=== PATIENT | female | born 1945 | race Two or more races ===

== ENCOUNTER → 2025-04-06 | Outpatient (CLI) | payer MEDICARE, SELFPAY ==
[2025-04-06 14:50] LABS: Basophils # (Auto) 0.1 Thou/mm3 (0.0-0.2); Basophils % (Auto) 1 % (0-2.5); Eosinophils # (Auto) 0.2 Thou/mm3 (0.0-0.5); Eosinophils % (Auto) 2 % (0-10); Hematocrit 34.1 % (36.0-46.0); Hemoglobin 11.9 g/dL (12.0-16.0); Immature Granulocytes % (Auto) 0 % (0-0); Immature Granulocytes Auto 0.04 Thou/mm3 (0.00-0.00); Lymphocytes # (Auto) 0.6 Thou/mm3 (1.0-4.8); Lymphocytes % (Auto) 6 % (10-50); Mean Corpuscular HGB Conc 34.9 g/dl (31.0-37.0); Mean Corpuscular Hemoglobin 29.8 pg (25.0-35.0); Mean Corpuscular Volume 85 fL (80-100); Monocytes # (Auto) 0.4 Thou/mm3 (0.0-0.8); Monocytes % (Auto) 4 % (0-12); Neutrophils # (Auto) 8.2 Thou/mm3 (1.8-7.7); Neutrophils % (Auto) 86 % (37-80); Nucleated Red Blood Cell % 0 /100 WBC (0); Platelet Count 198 Thou/mm3 (140-440); RDW Standard Deviation 43.7 fL (36.4-46.3); White Blood Count 9.5 Thou/mm3 (3.6-11.0)
[2025-04-06 14:57] LABS: INR 1.1 (0.9-1.3); Partial Thromboplastin Time 23.6 Seconds (22.0-36.0); Prothrombin Time 11.9 Seconds (9.0-12.2)
[2025-04-06 14:59] LABS: Glucose Estimated Average 117 mg/dL (80-131); Hemoglobin A1C 5.7 % Hgb (4.8-6.0)
[2025-04-06 15:03] LABS: Alanine Aminotransferase 25 U/L (10-49); Albumin, Serum 3.9 gm/dL (3.4-4.8); Albumin/Globulin Ratio 1.8 (1.2-2.2); Alkaline Phosphatase 100 U/L (46-116); Anion Gap 12 (7-16); Aspartate Amino Transferase 22 U/L (0-34); BUN/Creatinine Ratio 24 Ratio (12-20); Bilirubin,Total 1.3 mg/dL (0.3-1.2); Blood Urea Nitrogen 17 mg/dL (9-23); Calcium 8.3 mg/dL (8.3-10.6); Calcium (Corrected) 8.4 mg/dL (8.5-10.1); Carbon Dioxide 22.3 mMol/L (20.0-31.0); Cardiac Risk Estimate 1.8 RATIO (3.7-5.6); Chloride 107 mMol/L (98-107); Cholesterol 88 mg/dL (132-200); Creatinine (Component) 0.7 mg/dL (0.6-1.3); Globulin 2.2 gm/dL (2.3-3.5); Glucose 140 mg/dL (74-106); HDL Cholesterol 48 mg/dL (40-60); LDL Cholesterol,Calculated 22 mg/dL (0-130); Magnesium 1.4 mg/dL (1.6-2.6); Osmolality,Calculated 284 (275-295); Phosphorous 2.9 mg/dL (2.4-5.1); Potassium 3.9 mMol/L (3.4-5.1); Sodium 141 mMol/L (136-145); Total Protein 6.1 gm/dL (5.7-8.2); Triglycerides 91 mg/dL (30-150); eGFR > 60 See Note
[2025-04-06 15:13] LABS: Creatinine MALB Rnd Ur 190 mg/dL (30-125); Microalbumin Creat Ratio 21 mg/gCrea (<30); Microalbumin, Random Urine 39 mg/L (0-300)
== END | disposition home or self-care (01) ==
LOC: COPL 13:51
PROVIDERS: PCP Nurse Practitioner; Referring Provider Nurse Practitioner; Visit Provider Nurse Practitioner
DX: Z01.812 Encounter for preprocedural laboratory examination (principal); E11.69 Type 2 diabetes mellitus with other specified complication; E78.5 Hyperlipidemia, unspecified; I10 Essential (primary) hypertension; E83.42 Hypomagnesemia; E83.39 Other disorders of phosphorus metabolism
CPT/HCPCS: 36415; 80053; 80061; 82043; 82570; 83036; 83735; 84100; 85025; 85610; 85730

== ENCOUNTER 2025-06-28 12:00 | Emergency (ER) | payer MEDICARE, SELFPAY ==
[2025-06-28] VITALS (30 sets, daily range): BP systolic 131–154; BP diastolic 40–69; PULSE 60–73; RESP 16–18; TEMP 36.6–37.1; O2SAT 88–98; BMI 31.5
--- NOTE | 2025-06-28 | XR_ITS ---
Examination: MRI lumbar spine without contrast Date and time of exam: June 28, 2025 1843 hours INDICATIONS: Back pain this week, lumbar spine surgery June 2025 Technique: Multiple MRI axial and sagittal sections lumbar spine. Sagittal T2-weighted images, TR 3500, TE 118 T1 weighted transverse sections, TR 688 T8.5, T2-weighted sagittal sections T1 weighted sagittal sections TR 621, TE 30 T2 axial sections, TR 4, 190, TE 84. Findings: All of the images are degraded by patient motion Transpedicular lumbar fusion L2-S1 with satisfactory alignment Acute compression fracture L1 vertebral body, reduction in height 40% Retropulsion of the posterior-superior margin of this vertebral body at least 5 mm impinging upon the cauda equina but no severe spinal stenosis IMPRESSION: Acute compression fracture L1 vertebral body, retropulsion of the posterior superior portion of this vertebral body at least 5 mm impinging upon the cauda equina, however no severe spinal stenosis
--- NOTE | 2025-06-28 | XR_ITS ---
MRI abdomen, without contrast. MRCP Date and time of exam: June 28, 2025, 1849 hours INDICATIONS: Abdominal pain this week, abnormal extrahepatic biliary tract dilatation on CT abdomen and pelvis today Technique: Multiple axial and coronal images of the abdomen have been obtained with the Siemens 1.5T MRI scanner. Images obtained included T1 weighted transverse images, T2-weighted transverse images, T2-weighted transverse images fat-suppressed, T2 weighted haste fat suppressed transverse images, T1 weighted images, in and out of phase images, T2-weighted coronal images, breath hold, T2 weighted haze coronal images as well as T2 weighted coronal thick slab images, MRCP. Findings: Abnormal enlarged common hepatic common bile duct measuring up to 17 mm with abrupt termination of the distal common bile duct Pancreatic duct is not dilated Atrophic pancreas No ascites Spleen not enlarged No hydronephrosis Aorta normal size IMPRESSION: Abnormal extrahepatic biliary tract dilatation, abrupt tapering of the distal common bile duct, differential would include malignant stricture at the ampulla Recommend ERCP follow-up
--- NOTE | 2025-06-28 13:17 | PD.EDRME ---
Rapid Medical Screening Exam RME Arrival date/time: 06/28/25 12:00 Chief Complaint: Abdominal Pain Time Seen by Provider: 06/28/25 13:27 Vital signs: Vital Signs Temperature 98.8 F 06/28/25 12:52 Pulse Rate 60 06/28/25 12:52 Respiratory Rate 18 06/28/25 12:52 Blood Pressure 134/69 H 06/28/25 12:52 Pulse Oximetry (%) 98 06/28/25 12:52 Oxygen Delivery Method Room Air 06/28/25 12:52 Pulse ox is 98% room air Vital signs reviewed by provider: Yes RME Narrative: Patient complains of difficulty passing stool and has had a past medical history to include small bowel obstruction. Recently she had a back surgery postponed due to abdominal pain and abdominal issues. Denies vomiting.
--- NOTE | 2025-06-28 13:18 | XR_ITS ---
Examination: CT abdomen with intravenous contrast CT pelvis with intravenous contrast 2-D coronal reconstructions 2-D sagittal reconstructions Date and time of exam:June 28, 2025 1620 hours INDICATIONS: Lower abdominal pain beginning 3 days ago. CTDI: vol (mGy) 12.8 DLP: (mGycm) 730 Technique: Multiple axial sections of the abdomen and pelvis have been obtained. 64 slice high-resolution scanner used. 3 mm axial sections have been obtained, post intravenous injection 60 cc [id number] 2-D sagittal, coronal reconstructions obtained. Low dose protocols were performed. One or more of the following dose reduction techniques were used; automated exposure control, adjustment of the mA and/or KV according to patient size, use of iterative reconstruction technique. Findings: Intrahepatic biliary tract dilatation Absent gallbladder Abnormal enlargement common bile duct, 16 mm No definite common hepatic or common bile duct stones No pancreatic mass or peripancreatic edema Pancreatic duct is not dilated No adrenal mass Spleen is not enlarged. No renal or ureteral calculi, no hydronephrosis Dense abdominal aortic calcification no aneurysmal dilatation No pericecal inflammatory change Intact urinary bladder Absent uterus No pelvic mass Abundant stool in the rectum with thickening the rectal wall Severe osteopenia with extensive transpedicular lumbar stabilization L2 through the sacrum with disc spacers Acute fracture L1 vertebral body, depression inferior endplate, axial image 95, reduction in height 40% Retropulsion of the posterior inferior margin of this vertebral body at least 5 mm IMPRESSION: Abnormal intra and extra hepatic biliary tract dilatation, common bile duct 16 mm Recommend MRCP follow-up to exclude common bile duct stones or malignant stricture of the distal common bile duct Abundant stool in the rectum with thickening the rectal wall, differential would include proctitis recommend direct inspection of the rectum as clinically warranted Acute fracture L1 vertebral body, depression inferior endplate, reduction in height 40%, retropulsed fragment off the posterior inferior margin of this vertebral body at least 5 mm Consider MRI lumbar spine follow-up to confirm significant lumbar spinal stenosis
--- NOTE | 2025-06-28 13:28 | PD.EDABDPN ---
ED Abdominal Pain RME/HPI General Chief Complaint: Abdominal Pain Stated complaint: ABD PAIN, HX DIVERTICULITIS, SENT BY PCP Time seen by provider: 06/28/25 13:27 Arrival date/time: 06/28/25 12:00 RME / HPI RME / HPI narrative: Patient complains of difficulty passing stool and has had a past medical history to include small bowel obstruction. Recently she had a back surgery postponed due to abdominal pain and abdominal issues. Denies vomiting. DR. ANGUIANO MAIN ED EVALUATION 80 year old female with history of diverticulosis, diverticulitis, previous small bowel obstructions, presents to the ED for evaluation of worsening abdominal pain beginning 2 days ago. Located most across lower abdomen described as aching in sensation, rating as severe. Accompanied by nausea, decreased appetite, subjective fevers, and constipation. Daughter states she has given the patient a mixture of tea's to help with digestion and stool softeners with little improvement. Denies any fevers, chills, vomiting, diarrhea, or urinary symptoms. Related Data Allergies Allergy/AdvReac Type Severity Reaction Status Date / Time No Known Allergies Allergy Verified 06/28/25 12:03 Review of Systems Review of Systems Systems Reviewed: All systems reviewed, normal except as documented Past Medical History Past Medical History CARDIAC: Positive Cardiac Disorders, Hypercholesterolemia and Hypertension GASTROINTESTINAL: Positive Diverticulosis ENDOCRINE: Positive Diabetes Mellitus Type 2 Surgical History SURGICAL: Positive of Back Surgery Social History SMOKING STATUS: Never smoker ED Exam Narrative Physical exam: Constitutional: Awake, alert, nontoxic, obese, appears to be in pain HEENT: NC, AT, EOMI Neck: Supple CV: RRR, no m/r/g Lungs: CTAB, no w/r/r, no respiratory distress. Abd: Soft, significant lower abdominal pain, no rebound, no guarding, no HSM noted to palpation Extremities: No deformities, no edema noted Neuro: AAOx3, CN 2-12 GIBL, no acute neuro deficit noted. Skin: Warm, dry, intact Course Course Course Narrative: 1640h: Labs showing CRP mildly elevated at 14, normal lactate, slight abnormalities to electrolytes without significant abnormalities noted. CT abdomen is pending. 1647h: CT is back showing the following concerning findings: - Abnormal intra and extra hepatic biliary tract dilatation, common bile duct 16 mm. Recommend MRCP follow-up to exclude common bile duct stones or malignant stricture of the distal common bile duct. - Abundant stool in the rectum with thickening the rectal wall, differential would include proctitis recommend direct inspection of the rectum as clinically warranted - Acute fracture L1 vertebral body, depression inferior endplate, reduction in height 40%, retropulsed fragment off the posterior inferior margin of this vertebral body at least 5 mm. Consider MRI lumbar spine follow-up to confirm significant lumbar spinal stenosis. MRIs ordered. Patient will be signed out to Dr. Smith pending results. Quality Measures none Orders Category Date Time Status CT Screening NOW Care 06/28/25 13:[address] Screening X1 Care 06/28/25 13:18 Active In and Out Catheter X1 Care 06/28/25 18:02 Completed Insert IV NOW Care 06/28/25 13:38 Active MRI Screening NOW Care 06/28/25 16:46 Active MRI Screening NOW Care 06/28/25 16:[address] abdomen pelvis w con Stat Exams 06/28/25 13:18 Completed MR MRCP Stat Exams 06/28/25 Ordered MR lumbar spine wo con Stat Exams 06/28/25 Ordered CBC Stat Lab 06/28/25 13:37 Completed CRP [C-Reactive Protein] Stat Lab 06/28/25 13:37 Completed Comprehensive Metabolic Panel Stat Lab 06/28/25 13:37 Completed Lactic Acid [Lactate (Lactic Acid)] Stat Lab 06/28/25 13:37 Completed Lipase Stat Lab 06/28/25 13:37 Completed Urinalysis Stat Lab 06/28/25 17:36 Received Morphine Inj Med 06/28/25 13:38 Discontinued 4 mg IVP X1 ONE Ondansetron Inj [Zofran Inj] Med 06/28/25 13:38 Discontinued 4 mg IVP X1 ONE Vital Signs Vital signs: Vital Signs Temperature 98.8 F 06/28/25 12:52 Pulse Rate 60 06/28/25 12:52 Respiratory Rate 18 06/28/25 12:52 Blood Pressure 134/69 H 06/28/25 12:52 Pulse Oximetry (%) 98 06/28/25 12:52 Oxygen Delivery Method Room Air 06/28/25 12:52 Pulse ox is 98% on room air which is adequate. Abdominal Pain MDM MDM Narrative MDM Narrative:: Terri Quinonez am scribing for and in the presence of Dr. Anguiano. Patient data External records reviewed:: None (No previous ED visits for review ) Clinical information provided by:: patient Social determinants that could affect healthcare access:: none Patient has the following chronic illnesses:: diverticulosis, diverticulitis, previous small bowel obstructions How is presenting disease/condition affected by chronic disease/condition?: exacerbated by Evaluation data The following diagnostics were reviewed and interpreted by me:: lab results and radiology exam(s) Lab and/or radiology exams considered but not ordered:: None Interpretation Summary: Ordering Physician: Jonathan Garces PA-C Date of Service: 06/28/25 Procedure(s): CT abdomen pelvis w con Accession Number(s): [id number] cc: Danielle Gutierrez; Teja Falcon MD; Jonathan Garces PA-C~ Examination: CT abdomen with intravenous contrast CT pelvis with intravenous contrast 2-D coronal reconstructions 2-D sagittal reconstructions Date and time of exam:June 28, 2025 1620 hours INDICATIONS: Lower abdominal pain beginning 3 days ago. CTDI: vol (mGy) 12.8 DLP: (mGycm) 730 Technique: Multiple axial sections of the abdomen and pelvis have been obtained. 64 slice high-resolution scanner used. 3 mm axial sections have been obtained, post intravenous injection 60 cc [id number] 2-D sagittal, coronal reconstructions obtained. Low dose protocols were performed. One or more of the following dose reduction techniques were used; automated exposure control, adjustment of the mA and/or KV according to patient size, use of iterative reconstruction technique. Findings: Intrahepatic biliary tract dilatation Absent gallbladder Abnormal enlargement common bile duct, 16 mm No definite common hepatic or common bile duct stones No pancreatic mass or peripancreatic edema Pancreatic duct is not dilated No adrenal mass Spleen is not enlarged. No renal or ureteral calculi, no hydronephrosis Dense abdominal aortic calcification no aneurysmal dilatation No pericecal inflammatory change Intact urinary bladder Absent uterus No pelvic mass Abundant stool in the rectum with thickening the rectal wall Severe osteopenia with extensive transpedicular lumbar stabilization L2 through the sacrum with disc spacers Acute fracture L1 vertebral body, depression inferior endplate, axial image 95, reduction in height 40% Retropulsion of the posterior inferior margin of this vertebral body at least 5 mm IMPRESSION: Abnormal intra and extra hepatic biliary tract dilatation, common bile duct 16 mm Recommend MRCP follow-up to exclude common bile duct stones or malignant stricture of the distal common bile duct Abundant stool in the rectum with thickening the rectal wall, differential would include proctitis recommend direct inspection of the rectum as clinically warranted Acute fracture L1 vertebral body, depression inferior endplate, reduction in height 40%, retropulsed fragment off the posterior inferior margin of this vertebral body at least 5 mm Consider MRI lumbar spine follow-up to confirm significant lumbar spinal stenosis Dictated By: Teja Falcon MD Signed By: <Electronically signed by Teja Falcon MD in OV> 06/28/25 1641 Medications / Prescriptions Medications or Prescriptions considered but not ordered:: None Medication administrations:: Medication Administration History Discontinued Medications Morphine Sulfate (Morphine Sulf Inj 10 Mg/Ml Vial) 4 mg IVP X1 ONE Stop: 06/28/25 13:39 Last Admin: 06/28/25 15:06 Dose: 4 mg Documented By: EF Ondansetron HCl (Ondansetron Inj 2 Mg/Ml Inj 2 Ml) 4 mg IVP X1 ONE; Protocol Stop: 06/28/25 13:39 Last Admin: 06/28/25 15:05 Dose: 4 mg Documented By: EF See above Consultations Consultation(s) initiated? (list below): No Diagnosis Differential diagnosis abdominal pain: abdominal pain, diverticulitis and small bowel obstruction Most likely diagnosis given after review of the tests above:: Abdominal pain, dilated common bile duct, L1 fracture Admission Indicated Admission indicated?: not indicated Explain why admission is indicated or not indicated:: Signed out pending final disposition Admission Request Was there a request for admission?: No Disposition Plan Disposition Plan: other (specify) ([facility] Discharge Plan Prescriptions/Referrals Referrals: Danielle Gutierrez FNP [Primary Care Provider] - In 1 week Problem List Clinical Impression: Common bile duct dilation, Abdominal pain, Fracture of lumbar spine Patient/Caregiver Discharge Instructions Print Language: Yi
[2025-06-28 13:47] LABS: Lactate (Lactic Acid) 1.0 mMol/L (0.4-2.0)
[2025-06-28 13:48] LABS: Basophils # (Auto) 0.1 Thou/mm3 (0.0-0.2); Basophils % (Auto) 1 % (0-2.5); Eosinophils # (Auto) 0.1 Thou/mm3 (0.0-0.5); Eosinophils % (Auto) 1 % (0-10); Hematocrit 33.0 % (36.0-46.0); Hemoglobin 11.2 g/dL (12.0-16.0); Immature Granulocytes Auto 0.08 Thou/mm3 (0.00-0.00); Lymphocytes # (Auto) 0.9 Thou/mm3 (1.0-4.8); Lymphocytes % (Auto) 8 % (10-50); Mean Corpuscular HGB Conc 33.9 g/dl (31.0-37.0); Mean Corpuscular Hemoglobin 30.4 pg (25.0-35.0); Mean Corpuscular Volume 90 fL (80-100); Monocytes # (Auto) 0.7 Thou/mm3 (0.0-0.8); Monocytes % (Auto) 7 % (0-12); Neutrophils # (Auto) 9.2 Thou/mm3 (1.8-7.7); Neutrophils % (Auto) 84 % (37-80); Nucleated Red Blood Cell # 0.00 Thou/mm3 (0.00-0.00); Nucleated Red Blood Cell % 0 /100 WBC (0); Platelet Count 227 Thou/mm3 (140-440); RDW Standard Deviation 48.9 fL (36.4-46.3); Red Blood Count 3.68 Miln/mm3 (4.00-5.20); White Blood Count 11.0 Thou/mm3 (3.6-11.0)
[2025-06-28 14:22] LABS: Alanine Aminotransferase 10 U/L (10-49); Albumin, Serum 3.9 gm/dL (3.4-4.8); Albumin/Globulin Ratio 1.8 (1.2-2.2); Alkaline Phosphatase 115 U/L (46-116); Anion Gap 11 (7-16); Aspartate Amino Transferase 19 U/L (0-34); BUN/Creatinine Ratio 31 Ratio (12-20); Bilirubin,Total 0.7 mg/dL (0.3-1.2); Blood Urea Nitrogen 25 mg/dL (9-23); C-Reactive Protein 14.3 mg/dL (0.0-0.9); Calcium 9.6 mg/dL (8.3-10.6); Calcium (Corrected) 9.7 mg/dL (8.5-10.1); Carbon Dioxide 19.4 mMol/L (20.0-31.0); Chloride 102 mMol/L (98-107); Creatinine (Component) 0.8 mg/dL (0.6-1.3); Estimated Creatinine Clearance 57.4 mL/min (>60); Globulin 2.2 gm/dL (2.3-3.5); Glucose 105 mg/dL (74-106); Lipase 20 U/L (12-53); Osmolality,Calculated 268 (275-295); Potassium 3.9 mMol/L (3.4-5.1); Sodium 132 mMol/L (136-145); Total Protein 6.1 gm/dL (5.7-8.2); eGFR > 60 See Note
[2025-06-28] MEDS: ONDANSETRON INJ 2 MG/ML INJ 2 ML 4 MG IVP (15:05)
[2025-06-28] MEDS: MORPHINE SULF INJ 10 MG/ML VIAL 4 MG IVP ×2 (15:06→20:37)
[2025-06-28 18:10] LABS: Collection Type, Urine Clean Catch; RBC,Urine 0 /hpf (0-3); WBC,Urine 0 /hpf (0-5)
--- NOTE | 2025-06-28 18:31 | EDNOTE_ITS ---
Emergency Room Addendum <Emily Jovel - Last Filed: 06/29/25 02:38> Addendum Narrative: 1800: Care assumed from Dr. Chand, the previous shift emergency physician. Past medical, surgical, social and family history reviewed. Vitals and home medications reviewed. Results and treatment plan discussed. I will assume the care of the patient at this time and will follow the patient, pending MRCP and MRI of the lumbar spine. Please refer to the emergency department record for history and examination from initial visit. 2257: [facility] declined the patient for transfer due to not having ERCP capabilities, as their provider is on vacation. 0040: Discussed case with [facility]'s transfer center. Discussed patients ED course, exam findings, labs, and radiology results. Awaiting callback. 0238: [facility] called back, stating the patient needs prior insurance authorization since the patient would need a Med Surge bed. RADIOLOGY RESULTS: [place] [facility] Signed Patient: NICK CLARK [facility]. Record#: [id number] Birthdate: 1945 Age/Sex: 80 / F Location: [facility] Attending Dr: Ordering Physician: Kenia Chand MD Date of Service: 06/28/25 Procedure(s): MR MRCP Accession Number(s): [id number] cc: Danielle Gutierrez; Teja Falcon MD; Kenia Chand MD~ MRI abdomen, without contrast. MRCP Date and time of exam: June 28, 2025, 1849 hours INDICATIONS: Abdominal pain this week, abnormal extrahepatic biliary tract dilatation on CT abdomen and pelvis today Technique: Multiple axial and coronal images of the abdomen have been obtained with the Siemens 1.5T MRI scanner. Images obtained included T1 weighted transverse images, T2-weighted transverse images, T2-weighted transverse images fat-suppressed, T2 weighted haste fat suppressed transverse images, T1 weighted images, in and out of phase images, T2-weighted coronal images, breath hold, T2 weighted haze coronal images as well as T2 weighted coronal thick slab images, MRCP. Findings: Abnormal enlarged common hepatic common bile duct measuring up to 17 mm with abrupt termination of the distal common bile duct Pancreatic duct is not dilated Atrophic pancreas No ascites Spleen not enlarged No hydronephrosis Aorta normal size IMPRESSION: Abnormal extrahepatic biliary tract dilatation, abrupt tapering of the distal common bile duct, differential would include malignant stricture at the ampulla Recommend ERCP follow-up Dictated By: Teja Falcon MD Signed By: <Electronically signed by Teja Falcon MD in OV> 06/28/252112 [place] [facility] Signed Patient: NICK CLARK [facility] Record#: [id number] Birthdate: 1945 Age/Sex: 80 / F Location: [facility] Attending Dr: Ordering Physician: Kenia Chand MD Date of Service: 06/28/25 Procedure(s): MR lumbar spine wo con Accession Number(s): [id number] cc: Danielle Gutierrez; Teja Falcon MD; Kenia Chand MD~ Examination: MRI lumbar spine without contrast Date and time of exam: June 28, 2025 1843 hours INDICATIONS: Back pain this week, lumbar spine surgery June 2025 Technique: Multiple MRI axial and sagittal sections lumbar spine. Sagittal T2-weighted images, TR 3500, TE 118 T1 weighted transverse sections, TR 688 T8.5, T2-weighted sagittal sections T1 weighted sagittal sections TR 621, TE 30 T2 axial sections, TR 4, 190, TE 84. Findings: All of the images are degraded by patient motion Transpedicular lumbar fusion L2-S1 with satisfactory alignment Acute compression fracture L1 vertebral body, reduction in height 40% Retropulsion of the posterior-superior margin of this vertebral body at least 5 mm impinging upon the cauda equina but no severe spinal stenosis IMPRESSION: Acute compression fracture L1 vertebral body, retropulsion of the posterior superior portion of this vertebral body at least 5 mm impinging upon the cauda equina, however no severe spinal stenosis Dictated By: Teja Falcon MD Signed By: <Electronically signed by Teja Falcon MD in OV> 06/28/252114 <Brayden Smith, - Last Filed: 06/29/25 05:21> Addendum Narrative: 1800: Care assumed from Dr. Chand, the previous shift emergency physician. Past medical, surgical, social and family history reviewed. Vitals and home medications reviewed. Results and treatment plan discussed. I will assume the care of the patient at this time and will follow the patient, pending MRCP and MRI of the lumbar spine. Please refer to the emergency department record for history and examination from initial visit. 2257: [facility] declined the patient for transfer due to not having ERCP capabilities, as their provider is on vacation. 0040: Discussed case with [facility]'s transfer center. Discussed patients ED course, exam findings, labs, and radiology results. Awaiting callback. 0238: [facility] called back, stating the patient needs prior insurance authorization since the patient would need a Med Surge bed. RADIOLOGY RESULTS: [place] [facility] Signed Patient: NICK CLARK. Record#: [id number] Birthdate: 1945 Age/Sex: 80 / F Location: [facility] Attending Dr: Ordering Physician: Kenia Chand MD Date of Service: 06/28/25 Procedure(s): MR MRCP Accession Number(s): [id number] cc: Danielle Gutierrez; Teja Falcon MD; Kenia Chand MD~ MRI abdomen, without contrast. MRCP Date and time of exam: June 28, 2025, 1849 hours INDICATIONS: Abdominal pain this week, abnormal extrahepatic biliary tract dilatation on CT abdomen and pelvis today Technique: Multiple axial and coronal images of the abdomen have been obtained with the Siemens 1.5T MRI scanner. Images obtained included T1 weighted transverse images, T2-weighted transverse images, T2-weighted transverse images fat-suppressed, T2 weighted haste fat suppressed transverse images, T1 weighted images, in and out of phase images, T2-weighted coronal images, breath hold, T2 weighted haze coronal images as well as T2 weighted coronal thick slab images, MRCP. Findings: Abnormal enlarged common hepatic common bile duct measuring up to 17 mm with abrupt termination of the distal common bile duct Pancreatic duct is not dilated Atrophic pancreas No ascites Spleen not enlarged No hydronephrosis Aorta normal size IMPRESSION: Abnormal extrahepatic biliary tract dilatation, abrupt tapering of the distal common bile duct, differential would include malignant stricture at the ampulla Recommend ERCP follow-up Dictated By: Teja Falcon MD Signed By: <Electronically signed by Teja Falcon MD in OV> 06/28/252112 [place] [facility] Signed Patient: NICK CLARK Record#: [id number] Birthdate: 1945 Age/Sex: 80 / F Location: [facility] Attending Dr: Ordering Physician: Kenia Chand MD Date of Service: 06/28/25 Procedure(s): MR lumbar spine wo con Accession Number(s): [id number] cc: Danielle Gutierrez; Teja Falcon MD; Kenia Chand MD~ Examination: MRI lumbar spine without contrast Date and time of exam: June 28, 2025 1843 hours INDICATIONS: Back pain this week, lumbar spine surgery June 2025 Technique: Multiple MRI axial and sagittal sections lumbar spine. Sagittal T2-weighted images, TR 3500, TE 118 T1 weighted transverse sections, TR 688 T8.5, T2-weighted sagittal sections T1 weighted sagittal sections TR 621, TE 30 T2 axial sections, TR 4, 190, TE 84. Findings: All of the images are degraded by patient motion Transpedicular lumbar fusion L2-S1 with satisfactory alignment Acute compression fracture L1 vertebral body, reduction in height 40% Retropulsion of the posterior-superior margin of this vertebral body at least 5 mm impinging upon the cauda equina but no severe spinal stenosis IMPRESSION: Acute compression fracture L1 vertebral body, retropulsion of the posterior superior portion of this vertebral body at least 5 mm impinging upon the cauda equina, however no severe spinal stenosis Dictated By: Teja Falcon MD Signed By: <Electronically signed by Teja Falcon MD in OV> 06/28/252114 Patient had an MRCP reading that showed a dilated common bile duct with a rather abrupt narrowing and constriction at the distal end. It was the recommendation of the radiologist that this patient undergo an ERCP to better evaluate this rather abrupt narrowing of the distal portion of the common bile duct. [facility] was willing to take the patient but the patient needs insurance authorization first this will be done by case management this morning. Case will be signed out to Dr. Chand.
[2025-06-28 19:00] LABS: Bilirubin,Urine Negative (Negative); Blood,Urine Negative (Negative); Budding Yeast,Urine Present; Clarity,Urine Clear (Clear/Hazy); Color,Urine Yellow (Lt Yel-Yel); Glucose, Urine 4+ (Negative); Ketones,Urine Trace (Negative); Leukocyte Esterase,Urine Negative (Negative); Nitrite,Urine Negative (Negative); PH,Urine 5.5 (5.0-7.0); Protein,Urine Negative (Neg - Trace); Specific Gravity,Urine 1.026 (1.001-1.035); Squamous Epithelial Cell,Urine 1 /hpf (0-5); Urobilinogen,Urine 2.0 mg/dL (0.0-1.0)
--- NOTE | 2025-06-28 22:43 | PC.NURSE ---
[facility] contacted for possible transfer for ERCP-packet faxed awaiting response.
--- NOTE | 2025-06-28 23:27 | PC.NURSE ---
Per Salvador at [facility] they do not have ERCP capabilities. [facility] contacted for transfer awaiting for response.
[2025-06-29] VITALS (12 sets, daily range): BP systolic 141–161; BP diastolic 35–57; PULSE 64–96; RESP 17–18; TEMP 36.5–36.9; O2SAT 93–96
--- NOTE | 2025-06-29 03:35 | PC.NURSE ---
0235 [facility] reached back and stated since pt is needing a Med Surge bed then insurance authorization is needed prior to transfer. Transfer Nurse will be made aware at the am shift. Per MD Smith this isn't an emergency and doesn't need to be transferred ED to ED.
--- NOTE | 2025-06-29 06:19 | PD.EDADDENDU ---
Emergency Room Addendum <Teresa Valera - Last Filed: 06/29/25 13:18> Addendum Narrative: 0600: Care assumed from Dr. Smith, overnight emergency physician. Patient is pending transfer for ERCP. Please refer to the emergency department record for history and examination from initial visit.? 80-year-old female with history of diverticulosis, diverticulitis, and previous small bowel obstructions presents to the Emergency Department with complaint of worsening abdominal pain that began two days ago. Pain is associated with nausea, decreased appetite, subjective fevers, and constipation. She denies chills, vomiting, diarrhea, or urinary symptoms. Patient signed out on 06/27 pending MRCP and MRI lumbar spine. Previous provider started transfer for ERCP. Transfer to [facility] declined (no ERCP provider available). Case discussed with [facility] transfer center; they required insurance authorization for Med-Surg bed. 0700: [facility] called back for authorization status and requested an update on the patient's condition. Have checked on patient, she continues to have pain. Appears to be combination of pain to lower back as well as abdomen, though abdominal pain appears to be worse. Patient also mentions that she does have some paresthesias to bilateral feet ongoing for several days now. Reviewed the MRI results. MRI lumbar spine from last night shows an acute compression fracture of L1 vertebral body. Retropulsion of posterior superior vertebral body fragment ~5 mm, impinging on cauda equina. No severe spinal stenosis. [facility] notes that this was not discussed with them last night. They will contact neurosurgery for consult. 0802h: [facility] called back. Recommendations from neurosurgery regarding the MRI spine results are no surgical intervention required at this time. Recommends back brace for corset, no lifting or bending, pain control, outpatient follow-up. [facility] will check with their GI specialist this morning to see if we can expedite patient's transfer. Checked on patient again -she is tearful, crying due to abdominal pain. Dose of morphine given about [address] from yesterday did show large amount of stool in rectum and has been constipated. Will add fleets enema. Awaiting callback from [facility]. 0821: GI specialist Dr. Martinez accepting transfer. D/w Dr. Patel in ED who accepts the patient for transfer to [facility] as well. Diagnoses: -Common bile duct dilation -Abnormal pain -Fracture of lumbar spine <Kenia Chand MD - Last Filed: 06/29/25 08:31> Addendum Narrative: 0600: Care assumed from Dr. Smith, overnight emergency physician. Patient is pending transfer for ERCP. Please refer to the emergency department record for history and examination from initial visit.? 80-year-old female with history of diverticulosis, diverticulitis, and previous small bowel obstructions presents to the Emergency Department with complaint of worsening abdominal pain that began two days ago. Pain is associated with nausea, decreased appetite, subjective fevers, and constipation. She denies chills, vomiting, diarrhea, or urinary symptoms. Patient signed out on 06/27 pending MRCP and MRI lumbar spine. Previous provider started transfer for ERCP. Transfer to [facility] declined (no ERCP provider available). Case discussed with [facility] transfer center; they required insurance authorization for Med-Surg bed. 0700: [facility] called back for authorization status and requested an update on the patient's condition. Have checked on patient, she continues to have pain. Appears to be combination of pain to lower back as well as abdomen, though abdominal pain appears to be worse. Patient also mentions that she does have some paresthesias to bilateral feet ongoing for several days now. Reviewed the MRI results. MRI lumbar spine from last night shows an acute compression fracture of L1 vertebral body. Retropulsion of posterior superior vertebral body fragment ~5 mm, impinging on cauda equina. No severe spinal stenosis. [facility] notes that this was not discussed with them last night. They will contact neurosurgery for consult. 0802h: [facility] called back. Recommendations from neurosurgery regarding the MRI spine results are no surgical intervention required at this time. Recommends back brace for corset, no lifting or bending, pain control, outpatient follow-up. [facility] will check with their GI specialist this morning to see if we can expedite patient's transfer. Checked on patient again -she is tearful, crying due to abdominal pain. Dose of morphine given about [address] from yesterday did show large amount of stool in rectum and has been constipated. Will add fleets enema. Awaiting callback from [facility]. 0821: GI specialist Dr. Martinez accepting transfer. D/w Dr. Patel in ED who accepts the patient for transfer to [facility] as well. Results <Teresa Soto - Last Filed: 06/29/25 13:18> Objective Laboratory: Laboratory Last Values WBC 11.0 Thou/mm3 (3.6-11.0) 06/28/25 13:37 RBC 3.68 Miln/mm3 (4.00-5.20) L 06/28/25 13:37 Hgb 11.2 g/dL (12.0-16.0) L 06/28/25 13:37 Hct 33.0 % (36.0-46.0) L 06/28/25 13:37 MCV 90 fL (80-100) 06/28/25 13:37 MCH 30.4 pg (25.0-35.0) 06/28/25 13:37 MCHC 33.9 g/dl (31.0-37.0) 06/28/25 13:37 RDW Std Deviation 48.9 fL (36.4-46.3) H 06/28/25 13:37 Plt Count 227 Thou/mm3 (140-440) 06/28/25 13:37 Neut % (Auto) 84 % (37-80) H 06/28/25 13:37 Lymph % (Auto) 8 % (10-50) L 06/28/25 13:37 Carolina % (Auto) 7 % (0-12) 06/28/25 13:37 Eos % (Auto) 1 % (0-10) 06/28/25 13:37 Baso % (Auto) 1 % (0-2.5) 06/28/25 13:37 Neut # (Auto) 9.2 Thou/mm3 (1.8-7.7) H 06/28/25 13:37 Lymph # (Auto) 0.9 Thou/mm3 (1.0-4.8) L 06/28/25 13:37 Carolina # (Auto) 0.7 Thou/mm3 (0.0-0.8) 06/28/25 13:37 Eos # (Auto) 0.1 Thou/mm3 (0.0-0.5) 06/28/25 13:37 Baso # (Auto) 0.1 Thou/mm3 (0.0-0.2) 06/28/25 13:37 Immature Gran # (Auto) 0.08 Thou/mm3 (0.00-0.00) H 06/28/25 13:37 Absolute Nucleated RBC 0.00 Thou/mm3 (0.00-0.00) 06/28/25 13:37 Immature Gran % 1 % (0-0) H 06/28/25 13:37 Nucleated RBC % 0 /100 WBC (0) 06/28/25 13:37 Sodium 132 mMol/L (136-145) L 06/28/25 13:37 Potassium 3.9 mMol/L (3.4-5.1) 06/28/25 13:37 Chloride 102 mMol/L (98-107) 06/28/25 13:37 Carbon Dioxide 19.4 mMol/L (20.0-31.0) L 06/28/25 13:37 Anion Gap 11 (7-16) 06/28/25 13:37 BUN 25 mg/dL (9-23) H 06/28/25 13:37 Creatinine 0.8 mg/dL (0.6-1.3) 06/28/25 13:37 Estim Creat Clear Calc 57.4 mL/min (>60) L 06/28/25 13:37 eGFR > 60 See Note (60-) 06/28/25 13:37 BUN/Creatinine Ratio 31 Ratio (12-20) H 06/28/25 13:37 Glucose 105 mg/dL (74-106) 06/28/25 13:37 Calculated Osmolality 268 (275-295) L 06/28/25 13:37 Lactic Acid 1.0 mMol/L (0.4-2.0) 06/28/25 13:37 Calcium 9.6 mg/dL (8.3-10.6) 06/28/25 13:37 Corrected Calcium 9.7 mg/dL (8.5-10.1) 06/28/25 13:37 Total Bilirubin 0.7 mg/dL (0.3-1.2) 06/28/25 13:37 AST 19 U/L (0-34) 06/28/25 13:37 ALT 10 U/L (10-49) 06/28/25 13:37 Alkaline Phosphatase 115 U/L (46-116) 06/28/25 13:37 C-Reactive Prot, Quant 14.3 mg/dL (0.0-0.9) H 06/28/25 13:37 Total Protein 6.1 gm/dL (5.7-8.2) 06/28/25 13:37 Albumin 3.9 gm/dL (3.4-4.8) 06/28/25 13:37 Globulin 2.2 gm/dL (2.3-3.5) L 06/28/25 13:37 Albumin/Globulin Ratio 1.8 (1.2-2.2) 06/28/25 13:37 Lipase 20 U/L (12-53) 06/28/25 13:37 Ur Collection Type Clean Catch 06/28/25 17:36 Urine Color Yellow (Lt Yel-Yel) 06/28/25 17:36 Urine Clarity Clear (Clear/Hazy) 06/28/25 17:36 Urine pH 5.5 (5.0-7.0) 06/28/25 17:36 Ur Specific Osakis 1.026 (1.001-1.035) 06/28/25 17:36 Urine Protein Negative (Neg - Trace) 06/28/25 17:36 Urine Glucose (UA) 4+ (Negative) A 06/28/25 17:36 Urine Ketones Trace (Negative) 06/28/25 17:36 Urine Blood Negative (Negative) 06/28/25 17:36 Urine Nitrite Negative (Negative) 06/28/25 17:36 Urine Bilirubin Negative (Negative) 06/28/25 17:36 Urine Urobilinogen (Auto) 2.0 mg/dL (0.0-1.0) 06/28/25 17:36 Ur Leukocyte Esterase Negative (Negative) 06/28/25 17:36 Urine RBC 0 /hpf (0-3) 06/28/25 17:36 Urine WBC 0 /hpf (0-5) 06/28/25 17:36 Ur Squamous Epith Cells 1 /hpf (0-5) 06/28/25 17:36 Urine Bacteria None (None) 06/28/25 17:36 Urine Yeast (Budding) Present (None) A 06/28/25 17:36 Imaging: Procedure(s): MR MRCP Accession Number(s): [id number] cc: Danielle Gutierrez; Teja Falcon MD; Kenia Chand MD~ MRI abdomen, without contrast. MRCP Date and time of exam: June 28, 2025, 1849 hours INDICATIONS: Abdominal pain this week, abnormal extrahepatic biliary tract dilatation on CT abdomen and pelvis today Technique: Multiple axial and coronal images of the abdomen have been obtained with the Siemens 1.5T MRI scanner. Images obtained included T1 weighted transverse images, T2-weighted transverse images, T2-weighted transverse images fat-suppressed, T2 weighted haste fat suppressed transverse images, T1 weighted images, in and out of phase images, T2-weighted coronal images, breath hold, T2 weighted haze coronal images as well as T2 weighted coronal thick slab images, MRCP. Findings: Abnormal enlarged common hepatic common bile duct measuring up to 17 mm with abrupt termination of the distal common bile duct Pancreatic duct is not dilated Atrophic pancreas No ascites Spleen not enlarged No hydronephrosis Aorta normal size IMPRESSION: Abnormal extrahepatic biliary tract dilatation, abrupt tapering of the distal common bile duct, differential would include malignant stricture at the ampulla Recommend ERCP follow-up Dictated By: Teja Falcon MD Procedure(s): MR lumbar spine wo con Accession Number(s): [id number] cc: Danielle Gutierrez; Teja Falcon MD; Kenia Chand MD~ Examination: MRI lumbar spine without contrast Date and time of exam: June 28, 2025 1843 hours INDICATIONS: Back pain this week, lumbar spine surgery June 2025 Technique: Multiple MRI axial and sagittal sections lumbar spine. Sagittal T2-weighted images, TR 3500, TE 118 T1 weighted transverse sections, TR 688 T8.5, T2-weighted sagittal sections T1 weighted sagittal sections TR 621, TE 30 T2 axial sections, TR 4, 190, TE 84. Findings: All of the images are degraded by patient motion Transpedicular lumbar fusion L2-S1 with satisfactory alignment Acute compression fracture L1 vertebral body, reduction in height 40% Retropulsion of the posterior-superior margin of this vertebral body at least 5 mm impinging upon the cauda equina but no severe spinal stenosis IMPRESSION: Acute compression fracture L1 vertebral body, retropulsion of the posterior superior portion of this vertebral body at least 5 mm impinging upon the cauda equina, however no severe spinal stenosis Dictated By: Teja Falcon MD Procedure(s): [facility] Accession Number(s): [id number] cc: Danielle Gutierrez; Teja Falcon MD; Jonathan Garces PA-C~ Examination: CT abdomen with intravenous contrast CT pelvis with intravenous contrast 2-D coronal reconstructions 2-D sagittal reconstructions Date and time of exam:June 28, 2025 1620 hours INDICATIONS: Lower abdominal pain beginning 3 days ago. CTDI: vol (mGy) 12.8 DLP: (mGycm) 730 Technique: Multiple axial sections of the abdomen and pelvis have been obtained. 64 slice high-resolution scanner used. 3 mm axial sections have been obtained, post intravenous injection 60 cc [id number] 2-D sagittal, coronal reconstructions obtained. Low dose protocols were performed. One or more of the following dose reduction techniques were used; automated exposure control, adjustment of the mA and/or KV according to patient size, use of iterative reconstruction technique. Findings: Intrahepatic biliary tract dilatation Absent gallbladder Abnormal enlargement common bile duct, 16 mm No definite common hepatic or common bile duct stones No pancreatic mass or peripancreatic edema Pancreatic duct is not dilated No adrenal mass Spleen is not enlarged. No renal or ureteral calculi, no hydronephrosis Dense abdominal aortic calcification no aneurysmal dilatation No pericecal inflammatory change Intact urinary bladder Absent uterus No pelvic mass Abundant stool in the rectum with thickening the rectal wall Severe osteopenia with extensive transpedicular lumbar stabilization L2 through the sacrum with disc spacers Acute fracture L1 vertebral body, depression inferior endplate, axial image 95, reduction in height 40% Retropulsion of the posterior inferior margin of this vertebral body at least 5 mm IMPRESSION: Abnormal intra and extra hepatic biliary tract dilatation, common bile duct 16 mm Recommend MRCP follow-up to exclude common bile duct stones or malignant stricture of the distal common bile duct Abundant stool in the rectum with thickening the rectal wall, differential would include proctitis recommend direct inspection of the rectum as clinically warranted Acute fracture L1 vertebral body, depression inferior endplate, reduction in height 40%, retropulsed fragment off the posterior inferior margin of this vertebral body at least 5 mm Consider MRI lumbar spine follow-up to confirm significant lumbar spinal stenosis Dictated By: Teja Falcon MD <Kenia Chand MD - Last Filed: 06/29/25 08:31> Objective Laboratory: Laboratory Last Values WBC 11.0 Thou/mm3 (3.6-11.0) 06/28/25 13:37 RBC 3.68 Miln/mm3 (4.00-5.20) L 06/28/25 13:37 Hgb 11.2 g/dL (12.0-16.0) L 06/28/25 13:37 Hct 33.0 % (36.0-46.0) L 06/28/25 13:37 MCV 90 fL (80-100) 06/28/25 13:37 MCH 30.4 pg (25.0-35.0) 06/28/25 13:37 MCHC 33.9 g/dl (31.0-37.0) 06/28/25 13:37 RDW Std Deviation 48.9 fL (36.4-46.3) H 06/28/25 13:37 Plt Count 227 Thou/mm3 (140-440) 06/28/25 13:37 Neut % (Auto) 84 % (37-80) H 06/28/25 13:37 Lymph % (Auto) 8 % (10-50) L 06/28/25 13:37 Carolina % (Auto) 7 % (0-12) 06/28/25 13:37 Eos % (Auto) 1 % (0-10) 06/28/25 13:37 Baso % (Auto) 1 % (0-2.5) 06/28/25 13:37 Neut # (Auto) 9.2 Thou/mm3 (1.8-7.7) H 06/28/25 13:37 Lymph # (Auto) 0.9 Thou/mm3 (1.0-4.8) L 06/28/25 13:37 Carolina # (Auto) 0.7 Thou/mm3 (0.0-0.8) 06/28/25 13:37 Eos # (Auto) 0.1 Thou/mm3 (0.0-0.5) 06/28/25 13:37 Baso # (Auto) 0.1 Thou/mm3 (0.0-0.2) 06/28/25 13:37 Immature Gran # (Auto) 0.08 Thou/mm3 (0.00-0.00) H 06/28/25 13:37 Absolute Nucleated RBC 0.00 Thou/mm3 (0.00-0.00) 06/28/25 13:37 Immature Gran % 1 % (0-0) H 06/28/25 13:37 Nucleated RBC % 0 /100 WBC (0) 06/28/25 13:37 Sodium 132 mMol/L (136-145) L 06/28/25 13:37 Potassium 3.9 mMol/L (3.4-5.1) 06/28/25 13:37 Chloride 102 mMol/L (98-107) 06/28/25 13:37 Carbon Dioxide 19.4 mMol/L (20.0-31.0) L 06/28/25 13:37 Anion Gap 11 (7-16) 06/28/25 13:37 BUN 25 mg/dL (9-23) H 06/28/25 13:37 Creatinine 0.8 mg/dL (0.6-1.3) 06/28/25 13:37 Estim Creat Clear Calc 57.4 mL/min (>60) L 06/28/25 13:37 eGFR > 60 See Note (60-) 06/28/25 13:37 BUN/Creatinine Ratio 31 Ratio (12-20) H 06/28/25 13:37 Glucose 105 mg/dL (74-106) 06/28/25 13:37 Calculated Osmolality 268 (275-295) L 06/28/25 13:37 Lactic Acid 1.0 mMol/L (0.4-2.0) 06/28/25 13:37 Calcium 9.6 mg/dL (8.3-10.6) 06/28/25 13:37 Corrected Calcium 9.7 mg/dL (8.5-10.1) 06/28/25 13:37 Total Bilirubin 0.7 mg/dL (0.3-1.2) 06/28/25 13:37 AST 19 U/L (0-34) 06/28/25 13:37 ALT 10 U/L (10-49) 06/28/25 13:37 Alkaline Phosphatase 115 U/L (46-116) 06/28/25 13:37 C-Reactive Prot, Quant 14.3 mg/dL (0.0-0.9) H 06/28/25 13:37 Total Protein 6.1 gm/dL (5.7-8.2) 06/28/25 13:37 Albumin 3.9 gm/dL (3.4-4.8) 06/28/25 13:37 Globulin 2.2 gm/dL (2.3-3.5) L 06/28/25 13:37 Albumin/Globulin Ratio 1.8 (1.2-2.2) 06/28/25 13:37 Lipase 20 U/L (12-53) 06/28/25 13:37 Ur Collection Type Clean Catch 06/28/25 17:36 Urine Color Yellow (Lt Yel-Yel) 06/28/25 17:36 Urine Clarity Clear (Clear/Hazy) 06/28/25 17:36 Urine pH 5.5 (5.0-7.0) 06/28/25 17:36 Ur Specific Osakis 1.026 (1.001-1.035) 06/28/25 17:36 Urine Protein Negative (Neg - Trace) 06/28/25 17:36 Urine Glucose (UA) 4+ (Negative) A 06/28/25 17:36 Urine Ketones Trace (Negative) 06/28/25 17:36 Urine Blood Negative (Negative) 06/28/25 17:36 Urine Nitrite Negative (Negative) 06/28/25 17:36 Urine Bilirubin Negative (Negative) 06/28/25 17:36 Urine Urobilinogen (Auto) 2.0 mg/dL (0.0-1.0) 06/28/25 17:36 Ur Leukocyte Esterase Negative (Negative) 06/28/25 17:36 Urine RBC 0 /hpf (0-3) 06/28/25 17:36 Urine WBC 0 /hpf (0-5) 06/28/25 17:36 Ur Squamous Epith Cells 1 /hpf (0-5) 06/28/25 17:36 Urine Bacteria None (None) 06/28/25 17:36 Urine Yeast (Budding) Present (None) A 06/28/25 17:36
--- NOTE | 2025-06-29 07:31 | PC.CC ---
Addendum entered by Evonne Link RN 06/29/25 09:25: called JT, lawrence Medina of [facility] time Addendum entered by Evonne Link RN 06/29/25 09:23: Transport ETA 1130. if unit avail sooner, will [facility] sooner Addendum entered by Evonne Link RN 06/29/25 09:15: Transfer packet w/ 1 CD given to ED Charge Ivon. Addendum entered by Evonne Link RN 06/29/25 08:57: 0830: spoke to Rox w/ [facility], she confirmed acceptance by Dr. Agudelo ED to ED [facility]. Addendum entered by Evonne Link RN 06/29/25 08:56: 0820: received call from Charge nurse Ivon, called ED to accept patient for GI services. Per Dr. Chand, neuro req is canceled and can f/u as outpatient per . Transfer packet created w/ 1 CD. Original Note: 0730: clinicals sent to [facility]. 0727: Neurosurgery added to transfer request for acute compression fx L1 verterbral body, retropulsion of the posterior superior portion of tis vertevral body at least 5 mm impinging upo the cauda equina. 0722 Received transfer request for GI for ERCP. Per ER Charge Nurse Sumit Del Valle declined d/t no GI services. is requesting ins auth.
[2025-06-29] MEDS: MORPHINE SULF INJ 10 MG/ML VIAL 4 MG IVP (07:45)
--- NOTE | 2025-06-29 11:13 | PC.NURSE ---
TELEPHONE REPORT GIVEN TO RADHA AT [facility].
--- NOTE | 2025-06-29 11:45 | PC.NURSE ---
PATIENT'S BRIEF CHANGED AND BEDSIDE REPORT GIVEN TO EMS.
== END 2025-06-29 11:50 | disposition short-term general hospital (02) ==
PROVIDERS: Physician Assistant; Emergency Provider Family Medicine; PCP Nurse Practitioner
DX: K83.8 Other specified diseases of biliary tract (principal); S32.019A Unspecified fracture of first lumbar vertebra, initial encounter for closed fracture; X58.XXXA Exposure to other specified factors, initial encounter; M48.061 Spinal stenosis, lumbar region without neurogenic claudication
CPT/HCPCS: 36415; 72148; 74177; 74181; 80053; 81001; 83605; 83690; 85025; 86140; 96374; 96375; 96376; 99284; A4649; J2270; J2405; Q9967

== ENCOUNTER 2025-10-04 13:47 | Outpatient (RCR) | payer MEDICARE, SELFPAY ==
--- NOTE | 2025-10-04 15:07 | PT.OIERPT ---
PT OP Initial Eval Patient Information Outpatient Physical Therapy Treatment Date: 10/04/25 Visit Reasons: lumbar fusion Medical Diagnosis: z47.89; m54.16; m54.51 Treatment Dx #1: Back Pain Treatment Dx #2: L/S Mobility Deficits Start of Care: 10/04/25 Date of Onset: 06/13/25 Smoking Status Smoking Status: Never smoker Initial Assessment Subjective: Pt is a 80 y/o female s/p L2-S1 fusion 06/13/25. Pt still has pain 3-4/10 with ADLs. Pt still has difficulty with prolonged standing, walking, chores, self care, balance, squatting, and performing recreational activities. Objective: L/S AROM: all motions are 50% towards end range with pain Hip PROM: all motions are WFL except IR BLE MMTs: L: grossly 3+/5 R: grossly 4-/5 Muscle Length: Hs tightness Assessment: Pt demonstrate back pain with mobility deficits leading to difficulty with ADLs. Pt will benefit from physical therapy to increase ROM, strength, and work on stability Short Term and Retirement Goals 1) Increase L/S AROM WNL in 8 wks to be able to perform chores 2) Decrease back pain to 2/10 in 8 wks to be able to sit and stand more than 30 mins 3) Increase core strength WFL in 8 wks to be able to perform recreational activities 4) Increase BLE MMTs grossly to 4/5 in 8 wks to be able to walk more than 30 mins 5) Increase hip AROM WNL in 8 wks to be able to perform self care activities 6) Indep with HEP Treatment Plan 1) Manual Therapy 2) Therapeutic Activities 3) Therapeutic Exercises 4) Modalities (ice, heat) 5) Balance Training 6) Gait Training Frequency and Duration: 2 x wk for 8 wks Certification Dates: 10/04/25 to 01/04/26 Procedure Charges OP PT Eval Mod Complex 30 minutes: Yes
== END 2025-10-15 23:59 | disposition home or self-care (01) ==
LOC: CPTX 13:47
PROVIDERS: PCP Orthopaedic Surgery Orthopaedic Surgery of the Spine; Referring Provider Orthopaedic Surgery Orthopaedic Surgery of the Spine; Visit Provider Orthopaedic Surgery Orthopaedic Surgery of the Spine
DX: Z47.89 Encounter for other orthopedic aftercare (principal); Z98.1 Arthrodesis status; M54.50 Low back pain, unspecified
CPT/HCPCS: 97162